=== PATIENT | female | born 1990 | race Caucasian/White ===

== ENCOUNTER → 2017-03-06 | Day surgery (SDC) | payer OTHER ==
[~2017-03-06] MED LIST: BUPIVACAINE/EPINEPHRINE 0.25% 50 ML VIAL ONE; LACTATED RINGER'S 1000 ML INJ 1,000 ML ONE; LIDOCAINE 1%/EPINEPHrine 1:100,000 SOLN 50 ML VIAL ONE; MEPERIDINE HCL 25 MG/ML VIAL ONE; MIDAZOLAM HCL 2 MG/2 ML VIAL ONE; ONDANSETRON HCL 4 MG/2 ML VIAL IV PUSH ONE; PROPOFOL 200 MG/20 ML AMP IV ONE; VANCOMYCIN HCL 1000 MG VIAL ONE
--- NOTE | 2017-03-06 16:20 | TN ---
cc: YAA MATTHEWS M.D., GERALD R. D.O. BIANCHI, JOSEPH D. M.D. DATE OF SURGERY: 03/06/2017 PREOPERATIVE DIAGNOSIS Abnormal mammogram of the left breast, 9 o'clock position. POSTOPERATIVE DIAGNOSIS Abnormal mammogram of the left breast, 9 o'clock position. PROCEDURE PERFORMED Needle localized excisional lumpectomy left breast, 9 o'clock position. ANESTHESIA TIVA. SURGEON Dr. Fields. SYNTHETIC PLASTERER Dia Balbuena, MS3, F[employer] INDICATION This is a pleasant 26-year-old female who has a strong family history of breast cancer. She had an abnormality in her breast. She was advised to have it surgically excised. Plans were made for above. PROCEDURE The patient was taken to the operating room and placed in the supine position. After anesthesia her left chest and breasts were prepped with Betadine. She had previously been down to the radiologist where guidewire was placed in the area in question. We made an incision at the 9 o'clock position, as the guidewire was placed medially, coursing in a medial to lateral direction and superior to inferior direction from the 10 o'clock position. We made an incision overlying the tip of the guidewire. We dissect to under the skin where it is entering, it is clipped off at the skin, we circumferentially dissect out from the specimen, lukas it with short stitch placed superiorly and long stitch placed laterally, this is sent down to imaging where Dr. Jefferson states the area in question appears to be excised. There was some lipoma that was little bit superior and this was excised and placed in the specimen container as well. The area was then irrigated. We reapproximate the deep layer with 3-0 Vicryl and skin was closed with 4-0 Vicryl. Steri-Strips were applied. Sterile bandage was applied. Heath Fields MD JDB/TLL /3:39 PM /4:02 PM
== END | disposition home or self-care (01) ==
LOC: ESDC 12:32
PROVIDERS: ATTEND Surgery
DX: R92.8 Other abnormal and inconclusive findings on diagnostic imaging of breast (principal); Z80.3 Family history of malignant neoplasm of breast
CPT/HCPCS: 00400; 19125; 88307; J2175; J2250; J2405; J3010; J3370; J7120

== ENCOUNTER 2018-09-17 18:27 | Inpatient (IN) ==
[2018-09-17] MEDS ORDERED: fentaNYL Citrate Inj 100 MCG/2 ML Ampul IV.PUSH PRN ×4 (19:12→19:27)
[2018-09-17] MEDS ORDERED: Naloxone Inj 0.4 MG/ML Vial IV.PUSH PRN ×2 (19:12→19:27)
[2018-09-17] MEDS ORDERED: Sod Chloride 0.9% Inj 1,000 ML IV.CONT PRN ×2 (19:12→19:27)
[2018-09-17] MEDS ORDERED: Sodium Chlor 0.9% Inj 500 ML IV.SIG PRN ×2 (19:12→19:27)
[2018-09-17] MEDS ORDERED: Citric Acid/Sodium Citrate Liq 30 ML UDC PO SCH ×2 (19:15→19:30)
[2018-09-17] MEDS ORDERED: Oxytocin 30 Units/500ml Premix 30 UNITS/500 ML BAG IV.SIG ONE ×2 (19:27→19:30)
--- NOTE | 2018-09-17 20:03 | P.HPOB ---
History of Present Illness Primary Care Physician: No Primary Care Physician Chief Complaint: oligohydramnios History of Present Illness: 27 yo with iup at 39w6d being admitted for iol for oligohydramnios. She has had majority of care with Dr. Mueller. She has had irreg contractions. No lof or vb. She had a bpp in office that noted tika of 4, possible meconium. PMH: chronic back pain spondylolisthesis , syncopal episodes in G1 (no formal diagnosis, eval by neuro), chronic anxiety(xanax use prior to conception), GERD PSH: tonsillectomy, benign lumpectomy [employer]: denies std OB: G1 08/2009 @41 wk Male 7 lb 11 oz FAM: Denies genetic d/o or defects SOC: quit tobacco use Weeks Gestation:: 39 Para: 1 : 2 - Inpatient Certification I certify that the inpatient services were ordered in accordance with Medicare regulations governing the order. This includes certification that hospital inpatient services are reasonable and necessary and in the case of services not specified as inpatient-only under 42 CFR 419.22(n), that they are appropriately provided as inpatient services in accordance to with the 2-midnight benchmark under 43 CFR 412.3(e) Estimated Total Length of Stay (Days): 3 Plans for Post Hospital Care: Home [facility] - Social History I have reviewed the patient's Social History: Yes - Tobacco History Second Hand Smoke Exposure: No Tobacco Use In Past 30 Days: No Smoking Status: Former smoker - Substance Use History Substance History: No History of Abuse - Travel History History of Recent Travel: No Recent Travel in the [place] Within the Last 8 Weeks: No Recent Travel Out of the Country Within the Last 8 Weeks: No - Immunization History Hx Influenza Vaccine This Season: Yes Medications and Allergies Active Medications: Active Medications Citric Acid/Sodium Citrate (Sodium Citrate/Citric Acid Liq) 30 ml PO PERINATAL INSTRUCTOR GIOVANNA Stop: 09/21/18 19:14 Dinoprostone (Cervidil Vag Insert) 10 mg VAGINAL ONCE ONE Stop: 09/17/18 20:01 Fentanyl Citrate (Fentanyl Inj) 100 mcg IV.PUSH Q1H PRN PRN Reason: PAIN SCALE 6 TO 10 Fentanyl Citrate (Fentanyl Inj) 50 mcg IV.PUSH Q1H PRN PRN Reason: Pain Scale 3 - 5 Lactated Ringer's (Lr 1000 Ml Inj) 1,000 mls @ 125 mls/hr IV.CONT .Q8H GIOVANNA Lactated Ringer's (Lr 1000 Ml Inj) 1,000 mls @ 3,000 mls/hr IV.SIG UNSCH PRN PRN Reason: compromise or epidural Sodium Chloride (Ns Inj) 500 mls @ 1,000 mls/hr IV.SIG UNSCH PRN PRN Reason: SEE LABEL COMMENTS Sodium Chloride (Ns Inj) 1,000 mls @ 100 mls/hr IV.CONT .Q10H PRN PRN Reason: SEE LABEL COMMENTS Oxytocin (Pitocin 30 Units/Ns 500 Ml Premix) 30 units in 500 mls @ 999 mls/hr IV.SIG BOLUS ONE Stop: 09/17/18 20:00 Lidocaine HCl (Xylocaine 1% Inj) 0.1 ml I-DERMAL PRN PRN PRN Reason: For IV start Stop: 09/20/18 19:11 Lidocaine HCl (Xylocaine 1% Inj) 10 ml INFILTRATN PRN PRN PRN Reason: For episiotomy repair Stop: 09/19/18 19:11 Mineral Oil (Muri-Lube Oil) 10 ml TOPICAL UNSCH PRN PRN Reason: PRN perineal massage Naloxone HCl (Narcan Inj) 0.1 mg IV.PUSH Q2M PRN PRN Reason: for opiate reversal Ondansetron HCl (Zofran Inj) 4 mg IV.PUSH Q6H PRN PRN Reason: NAUSEA OR VOMITING Sodium Chloride (Ns Flush) 2 ml IV.FLUSH BID GIOVANNA Sodium Chloride (Ns Flush) 2 ml IV.FLUSH UNSCH PRN PRN Reason: FLUSH AFTER USING IV ACCESS Allergies Allergy/AdvReac Type Severity Reaction Status Date / Time cephalexin [From Keflex] Allergy Severe Anaphylaxis Verified 09/17/18 18:53 dextromethorphan Allergy Severe VICKS 440 Verified 09/17/18 18:53 penicillin G Allergy Severe Anaphylaxis Verified 09/17/18 18:53 cefuroxime [From Ceftin] Allergy Anaphylaxis Verified 09/17/18 18:53 Home Medications Medication Instructions Recorded Confirmed Type acetaminophen [Tylenol] 650 mg PO Q6H PRN 09/17/18 09/17/18 History magnesium 250 mg PO DAILY 09/17/18 09/17/18 History vit,[id number] 350 mg PO PRN PRN 09/17/18 09/17/18 History [PNV 29-1] ranitidine HCl 150 mg PO DAILY 09/17/18 09/17/18 History Exam Vital signs: Vital Signs 09/17/18 19:06 09/17/18 19:07 Temperature 99.6 F Pulse Rate 77 Respiratory Rate 20 Blood Pressure 129/77 - Constitutional no acute distress - Routine HEENT Exam Head: Present: normocephalic Eye: Present: EOMI ENT: Present: mucous membranes moist - Routine Chest/Breast/Axilla Exam Chest wall: Absent: tenderness - Routine Respiratory Exam Absent: accessory muscle use - Routine Cardiovascular Exam Present: RRR - Routine Exam Comments: 1-2/50/-3, post, medium consistency - Routine Extremities Exam Absent: cyanosis, clubbing - Routine Skin Exam Present: intact - Routine Neurological Exam Present: alert, oriented X3 Results - Labs Group B Strep: Negative Caprini VTE Risk Assessment Caprini VTE Risk Assessment: No/Low Risk (score <= 1) Caprini Risk Assessment Model: Point Value = 1 Point Value = 2 Point Value = 3 Point Value = 5 Age 41-60 Minor surgery BMI > 25 kg/m2 Swollen legs Varicose veins or History of unexplained or recurrent spontaneous Oral contraceptives or hormone replacement Sepsis (< 1 month) Serious lung disease, including pneumonia (< 1 month) Abnormal pulmonary function Acute myocardial infarction Congestive heart failure (< 1 month) History of inflammatory bowel disease Medical patient at bed rest Age 61-74 Arthroscopic surgery Major open surgery (> 45 min) Laparoscopic surgery (> 45 min) Malignancy Confined to bed (> 72 hours) Immobilizing plaster cast Central venous access Age >= 75 History of VTE Family history of VTE Factor V Leiden Prothrombin [id number] Lupus anticoagulant Anticardiolipin antibodies Elevated serum homocysteine Heparin-induced thrombocytopenia Other congenital or acquired thrombophilia Stroke (< 1 month) Elective arthroplasty Hip, pelvis, or leg fracture Acute spinal cord injury (< 1 month) Prophylaxis Regimen: Total Risk Factor Score Risk Level Prophylaxis Regimen 0-1 Low Early ambulation 2 Moderate Order ONE of the following: *Sequential Compression Device (SCD) *Heparin 5000 units SQ BID 3-4 Higher Order ONE of the following medications: *Heparin 5000 units SQ TID *Enoxaparin/Lovenox 40 mg SQ daily (WT < 150 kg, CrCl > 30 mL/min) *Enoxaparin/Lovenox 30 mg SQ daily (WT < 150 kg, CrCl > 10-29 mL/min) *Enoxaparin/Lovenox 30 mg SQ BID (WT < 150 kg, CrCl > 30 mL/min) AND/OR *Sequential Compression Device (SCD) 5 or more Highest Order ONE of the following medications: *Heparin 5000 units SQ TID (Preferred with Epidurals) *Enoxaparin/Lovenox 40 mg SQ daily (WT < 150 kg, CrCl > 30 mL/min) *Enoxaparin/Lovenox 30 mg SQ daily (WT < 150 kg, CrCl > 10-29 mL/min) *Enoxaparin/Lovenox 30 mg SQ BID (WT < 150 kg, CrCl > 30 mL/min) AND *Sequential Compression Device (SCD) Assessment and Plan - Diagnosis (1) Oligohydramnios Code(s): O41.00X0 - Oligohydramnios, unspecified trimester, not applicable or unspecified Status: Acute (2) 39 weeks gestation of Code(s): Z3A.39 - 39 weeks gestation of Status: Acute (3) Chronic anxiety Code(s): F41.9 - Anxiety disorder, unspecified Status: Acute - Plan 27 yo with iup at 39w6d being admitted for iol for oligohydramnios, possible meconium noted on u/s 1) IOL for oligohydramnios - discussed low peterson score, possible prolonged induction. Reviewed possibility of CD for arrest of labor or abnormal tracing. Will start induction with cervidil then re-evaluate in am for arom/ pitocin. 2) GBS negative 3) History of anxiety- off of xanax during , at risk for pp depression/ anxiety. Using vistaril prn 4) chronic back pain 5) GERD- zantac prn 6) Fetus- cephalic, TIKA of 4, AGA Discharge Planning: home ppd 2-3
[2018-09-17 20:41] LABS: Baso % (Auto) 0.4 % (0.0-2.0); Eos # (Auto) 0.1 th/mm3 (0.0-0.4); Hemoglobin 12.6 gm/dL (11.6-15.3); Lymph # (Auto) 1.5 th/mm3 (1.0-4.8); Lymph % (Auto) 20.4 % (9.0-44.0); Mean Corpuscular Hemoglobin 30.8 pg (27.0-34.0); Mean Platelet Volume 9.4 fL (7.0-11.0); Mono # (Auto) 0.8 th/mm3 (0.0-0.9); Mono % (Auto) 11.4 % (0.0-8.0); Neut # (Auto) 4.7 th/mm3 (1.8-7.7); Neut % (Auto) 65.8 % (16.0-70.0); Platelet Count 151 th/mm3 (150-450); Red Blood Count 4.08 mil/mm3 (4.00-5.30); Red Cell Distribution Width 13.6 % (11.6-17.2); White Blood Count 7.2 th/mm3 (4.0-11.0)
[2018-09-17 21:12] LABS: Bacteria,Urine Moderate /hpf; Bilirubin,Urine Negative (Negative); Clarity,Urine Hazy (Clear); Color,Urine Yellow (Yellw/Straw); Glucose,Urine (UA) 50 mg/dL (Negative); Leukocyte Esterase,Urine Negative (Negative); Mucus,Urine Few /lpf (Occasional); Nitrite,Urine Negative (Negative); Specific Gravity,Urine 1.014 (1.002-1.035); Squamous Epithelial Cell,Urine 1 /hpf (0-5)
[2018-09-17 21:15] LABS: Amphetamine Urine With Conf Neg (Neg); Benzodiazepine Urine With Conf Neg (Neg)
[2018-09-18] MEDS ORDERED: Oxytocin 30 Units/500ml Premix 30 UNITS/500 ML BAG IV.SIG PRN (10:00)
[2018-09-18] MEDS ORDERED: fentaNYL 2MCG-Bupiv 0.125% Epi 150 ML EPIDURAL ONE (14:34)
[2018-09-18] MEDS ORDERED: Lidocaaine 1.5%/Epinephrine 1:200,000 PF Inj 5 ML Amp ONE (14:39)
[2018-09-18] MEDS ORDERED: fentaNYL 2MCG-Bupiv 0.125% Epi 150 ML EPIDURAL PRN (15:56)
[2018-09-18] MEDS ORDERED: fentaNYL Citrate Inj 100 MCG/2 ML Ampul EPIDURAL ONE (16:45)
[2018-09-18] MEDS ORDERED: Benzocaine 20% Top Spray 60 ML Can TOPICAL PRN (17:41)
[2018-09-18] MEDS ORDERED: Bisacodyl 10 MG Supp RECTAL PRN (17:41)
[2018-09-18] MEDS ORDERED: Naloxone Inj 0.4 MG/ML Vial IV.PUSH PRN (17:41)
--- NOTE | 2018-09-18 17:46 | P.OBDELI ---
Weeks Gestation: 39 Patient Started Active Labor: Yes Medical Induction of Labor: No Artificial Rupture of Membrane: No Episiotomy: none Vaginal Delivery: Normal Presentation: Occiput anterior Nuchal Cord: None Delayed Cord Clamping (45 sec): Yes Placenta: Spontaneous delivery, Uterus explored +, 3 vessel cord Laceration: 1 deg Repair: Vicryl running Estimated blood loss (mL): 250 Infant: Male
[2018-09-18] MEDS ORDERED: Oxytocin 30 Units/500ml Premix 30 UNITS/500 ML BAG IV.SIG ONE (19:30)
[2018-09-18] MEDS ORDERED: Oxytocin 30 Units/500ml Premix 30 UNITS/500 ML BAG IV.CONT PRN (19:30)
[2018-09-18] MEDS ORDERED: Measles/Mumps/Rubella Vaccine Inj 0.5 ML Vial SQ ONE (20:00)
[2018-09-18] MEDS ORDERED: Diphtheria/Tetanus/Pertussis Vaccine Inj 0.5 ML Syringe IM ONE (20:00)
[2018-09-18] MEDS ORDERED: Zolpidem Tartrate 5 MG Tablet PO PRN (21:00)
[2018-09-18] MEDS: Senna/Docusate Sodium 8.6/50 MG Tablet PO SCH (22:15)
[2018-09-18] MEDS: Witch Hazel 50%/Glyderin 12.5% 40 Pad Jar RECTAL PRN (22:16)
[2018-09-19] MEDS: Acetaminophen 325 MG Tablet PO PRN ×5 (03:43→20:00)
[2018-09-19 06:46] VITALS: RESP 18
[2018-09-19] MEDS: Famotidine 20 MG Tablet PO SCH ×2 (08:19→20:00)
[2018-09-19] MEDS: Senna/Docusate Sodium 8.6/50 MG Tablet PO SCH ×2 (08:19→20:00)
--- NOTE | 2018-09-19 15:49 | P.PNOB ---
Subjective Post day: 1 Interval history: Doing well Baby is doing well Pain is controlled Bleeding is good Tolerating diet. Objective Vital Signs/I&O: Vital Signs 09/18/18 16:00 09/18/18 16:10 09/18/18 16:25 Temperature Pulse Rate 72 81 86 Respiratory Rate Blood Pressure 116/74 120/67 119/62 09/18/18 16:30 09/18/18 16:40 09/18/18 17:20 Temperature Pulse Rate 79 82 Respiratory Rate 16 Blood Pressure 118/69 123/82 09/18/18 17:40 09/18/18 17:43 09/18/18 17:45 Temperature 99.1 F Pulse Rate 113 H 100 H Respiratory Rate 20 18 Blood Pressure 130/63 117/68 09/18/18 17:53 09/18/18 18:15 09/18/18 18:45 Temperature Pulse Rate 102 H 89 93 H Respiratory Rate 18 20 20 Blood Pressure 130/77 120/76 111/70 09/18/18 19:15 09/18/18 19:25 09/18/18 19:30 Temperature Pulse Rate 102 H 74 Respiratory Rate 18 Blood Pressure 123/78 113/80 09/18/18 20:15 09/18/18 20:45 09/19/18 06:46 Temperature 99.0 F 98.4 F Pulse Rate 91 H 61 Respiratory Rate 18 24 18 Blood Pressure 112/86 117/74 Result Diagrams: 09/17/18 19:25 Objective Remarks: GENERAL: Well-nourished, well-developed patient. CARDIOVASCULAR: Regular rate and rhythm without murmurs, gallops, or rubs. RESPIRATORY: Breath sounds equal bilaterally. No accessory muscle use. ABDOMEN/GI: Abdomen soft, non-tender. Fundus: Firm, non-tender at umbilicus. GENITOURINARY: Light to moderate bleeding. EXTREMITIES: No cyanosis or edema, non-tender, without signs of DVT. Assessment and Plan - Plan PPD #1 Doing well Routine intermediate tomorrow.
[2018-09-20] MEDS: Acetaminophen 325 MG Tablet PO PRN ×3 (01:37→09:55)
[2018-09-20 08:07] VITALS: BP 120/72; PULSE 70; TEMP 98.4
[2018-09-20] MEDS: Senna/Docusate Sodium 8.6/50 MG Tablet PO SCH (09:54)
[2018-09-20] MEDS: Famotidine 20 MG Tablet PO SCH (09:55)
[2018-09-20] MEDS ORDERED: Measles/Mumps/Rubella Vaccine Inj 0.5 ML Vial SQ ONE (13:00)
[2018-09-20] MEDS: Witch Hazel 50%/Glyderin 12.5% 40 Pad Jar RECTAL PRN (14:09)
--- NOTE | 2018-09-20 14:32 | P.OBGPN ---
Doing well Ready to go home Pain and bleeding are ok Will call office for an appt soon. Call us if any problems.
== END 2018-09-20 15:03 | disposition home or self-care (01) ==
LOC: H2E 18:27 → H1EA 09-18 20:38
PROVIDERS: ADMIT Obstetrics & Gynecology; ATTEND Obstetrics & Gynecology